=== PATIENT | male | born 1935 | race Two or more races ===

== ENCOUNTER → 2017-12-13 | Outpatient (CLI) | payer MEDICARE, MEDICAID ==
[~2017-12-13] MED LIST: AMLO5TAB2 PO; GRAP50CA PO; MAGN65TA PO; PRAV20TA2 PO
== END ==
LOC: CLAB 09:46
PROVIDERS: ATTEND Family Medicine
DX: D47.3 Essential (hemorrhagic) thrombocythemia (principal)
CPT/HCPCS: 36415

== ENCOUNTER → 2018-01-12 | Outpatient (CLI) | payer MEDICAID, MEDICARE ==
[2018-01-12 09:57] LABS: ALBUMIN 3.6 GM/DL (3.4-5.0); DIRECT BILIRUBIN ADULT 0.2 MG/DL (0.0-0.2)
[2018-01-12 10:02] LABS: CHOLESTEROL/ HDL RATIO 2.98 RATIO; HDL CHOLESTEROL 48.9 MG/DL (40.0-60.0); INDIRECT BILIRUBIN 0.7 MG/DL (0.0-0.8); TOTAL BILIRUBIN ADULT 0.9 MG/DL (0.2-1.0); TOTAL PROTEIN 7.6 GM/DL (6.4-8.2)
== END ==
LOC: CLAB 08:58
PROVIDERS: ATTEND Internal Medicine Interventional Cardiology
DX: E78.5 Hyperlipidemia, unspecified (principal)
CPT/HCPCS: 36415; 80061; 80076